=== PATIENT | female | born 1985 ===

== ENCOUNTER 2024-02-04 08:45 | Inpatient (IN) | payer OTHER ==
[~2024-02-04] VITALS: Ht 157.5 cm; Wt 74.8 kg
[2024-02-11 20:50] VITALS: BP 130/62
[2024-02-11 23:21] LABS: HEMATOCRIT 38.6 % (36.0-45.00); HEMOGLOBIN 12.8 g/dL (12.0-15.00); MEAN CORPUSCULAR HEMOGLOBIN 31.1 pg (27.00-32.0); MEAN CORPUSCULAR HGB CONC 33.1 g/dl (32.0-36.0); PLATELET COUNT 220 K/uL (150-450); RED BLOOD COUNT 4.11 M/uL (4.00-6.00); RED CELL DISTRIBUTION WIDTH 13.2 % (11.5-14.5)
[2024-02-11 23:26] VITALS: BP 118/60
[2024-02-11] MEDS ORDERED: MORPHINE SULFATE 4 MG/ML VIAL IV STA (23:47)
[2024-02-11 23:52] LABS: ALBUMIN 2.6 gm/dL (3.4-5.0); BILIRUBIN TOTAL 0.46 mg/dL (0.3-1.2); CALCIUM 9.2 mg/dL (8.5-10.1); CREATININE SERUM 0.42 mg/dL (0.55-1.02); GFR 169.77; GLOBULINA 3.3 G/DL (2.4-3.5); POTASSIUM 3.9 mEq/L (3.5-5.1); TOTAL PROTEIN 5.9 gm/dL (6.4-8.2)
[2024-02-11 23:58] LABS: INR < 0.93; PARTIAL THROMBOPLASTIN TIME 26.5 SECONDS (22.0-34.0); PROTHROMBIN TIME 9.8 SECONDS (9.0-11.5)
[2024-02-12] VITALS (8 sets, daily range): BP systolic 90–150; BP diastolic 60–82
[2024-02-12] MEDS ORDERED: ERYTHROMYCIN BASE OPHT 1GM EACH TUBE OP ONE (01:14)
[2024-02-12] MEDS ORDERED: CHLORHEXIDINE GLUCONATE 120 ML BOTTLE TOP ONE (01:14)
[2024-02-12] MEDS ORDERED: LIDOCAINE HCL 1% 10ML VIAL ONE (01:14)
[2024-02-12] MEDS ORDERED: OXYTOCIN 20 UNITS/1000ML RL PIGGYBAG IV ONE (01:14)
[2024-02-12] MEDS ORDERED: MORPHINE SULFATE 4 MG/ML CARTRIDGE IV ONE (08:15)
[2024-02-12] MEDS ORDERED: OXYTOCIN 20 UNITS/500ML RL PIGGYBAG IV ONE (08:16)
[2024-02-12] MEDS ORDERED: OXYTOCIN 500 ML IV ONE (08:30)
[2024-02-12] MEDS ORDERED: CHLORHEXIDINE GLUCONATE 120 ML BOTTLE TOP SCH (14:45)
[2024-02-12] MEDS ORDERED: OXYTOCIN 1,000 ML IV ONE (14:45)
[2024-02-12] MEDS ORDERED: DOCUSATE SODIUM 100MG CAP PO SCH (17:00)
[2024-02-12] MEDS ORDERED: IBUprofen 600 MG TABLET PO SCH (18:00)
[2024-02-13 00:59] VITALS: BP 98/61; O2SAT 100
[2024-02-13 08:02] LABS: HEMATOCRIT 24.2 % (36.0-45.00); MEAN CELL VOLUME 93.6 fL (80.00-100.00); MEAN CORPUSCULAR HGB CONC 34.5 g/dl (32.0-36.0); PLATELET COUNT 193 K/uL (150-450); RED BLOOD COUNT 2.59 M/uL (4.00-6.00); RED CELL DISTRIBUTION WIDTH 12.9 % (11.5-14.5)
[2024-02-13 08:16] VITALS: BP 97/50
[2024-02-13 08:41] LABS: HEMOGLOBIN 8.4 g/dL (12.0-15.00); MEAN CORPUSCULAR HEMOGLOBIN 32.4 pg (27.00-32.0)
[2024-02-13] MEDS ORDERED: PNV,CALCIUM 72/IRON/FOLIC ACID 1 TAB TABLET PO SCH (09:00)
[2024-02-13 13:42] VITALS: BP 109/66
[2024-02-13 16:00] VITALS: BP 102/77
[2024-02-13] MEDS ORDERED: IRON FUM,PS/FOLIC/BCOMP,C NO.9 1 CAP CAPSULE PO SCH (17:00)
[2024-02-13] MEDS ORDERED: DOCUSATE CALCIUM 240 MG CAPSULE PO SCH (17:00)
[2024-02-13] MEDS ORDERED: HYDROCORTISONE 2.5% 30 GM TUBE RECTAL SCH (17:00)
[2024-02-14 00:03] VITALS: BP 92/60
[2024-02-14 08:00] VITALS: BP 116/71
== END 2024-02-14 11:34 | disposition home or self-care (01) | DRG 807 ==
LOC: LDR 02-11 21:24 → OB/GYN 02-12 12:43
PROVIDERS: Obstetrics & Gynecology Gynecology; Obstetrics & Gynecology Maternal & Fetal Medicine; ADMIT Obstetrics & Gynecology; ATTEND Obstetrics & Gynecology
PROC: 4A1HXCZ Monitoring of Products of Conception, Cardiac Rate, External Approach (ICD-10-PCS; 2024-02-11)
PROC: 10D07Z6 Extraction of Products of Conception, Vacuum, Via Natural or Artificial Opening (ICD-10-PCS; principal; 2024-02-12)
PROC: 0KQM0ZZ Repair Perineum Muscle, Open Approach (ICD-10-PCS; 2024-02-12)
PROC: 0UQMXZZ Repair Vulva, External Approach (ICD-10-PCS; 2024-02-12)
DX: O70.1 Second degree perineal laceration during delivery (principal); Z37.0 Single live birth; O71.82 Other specified trauma to perineum and vulva; O66.0 Obstructed labor due to shoulder dystocia; O66.5 Attempted application of vacuum extractor and forceps; Z3A.38 38 weeks gestation of pregnancy; Z20.822 Contact with and (suspected) exposure to COVID-19